=== PATIENT | female | born 1965 | race Caucasian/White ===

== ENCOUNTER 2016-09-02 07:41 | Day surgery (SDC) | payer BC ==
--- NOTE | 2016-09-01 10:35 | PCM.PREANE ---
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: no symptoms Respiratory: Reports: no symptoms Cardiovascular: Reports: no symptoms - PHYSICAL ASSESSMENT Height: 1.6 m Weight: 117.934 kg ASA Class: 2 Mental Status: alert & oriented x3 Airway Class: Mallampati = 1 Dentition: Reports: normal dentition ROM/Head Extension: full Respiratory Status: lungs clear to auscultation bilaterally Cardiovascular Status: regular rate & rhythm, normal S1, S2, no murmur - ALLERGIES Allergies/Adverse Reactions: Allergies Allergy/AdvReac Type Severity Reaction Status Date / Time No Known Allergies Allergy Verified 10/16/13 14:08 - BLOOD Blood Available: No - ANESTHESIA PLAN Preop Beta Renny: No Anesthesia Type Planned: MAC - ACKNOWLEDGEMENTS Pt an appropriate candidate for the planned anesthesia: Yes Alternatives and risks of anesthesia discussed w pt/guardian: Yes Pt/Guardian understands and agree with anesthesia plan: Yes PreAnesthesia Questionnaire HEENT History: Reports: Other (see below) Other HEENT History: wears glasses Gastrointestinal History: Reports: GERD Genitourinary History: Reports: Renal calculus 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: Musculoskeletal History: Reports: Gout Other Musculoskeletal History: states hx of "gout in her ankles" Psychiatric History: Reports: Anxiety, Depression Endocrine/Metabolic History: Reports: Diabetes, type II, Obesity/BMI 30+, Other (see below) Other Endocrine/Metabolic History: Insulin resistent, has been on metformin before, may be restarted after surgery Dermatologic History: Reports: Other (see below) Other Dermatologic History: dry skin - Past Surgical History Head Surgeries/Procedures: Reports: None HEENT Surgical History: Reports: Myringotomy w tube(s), Tonsillectomy Female Surgical History: Reports: section, Hysterectomy, Tubal ligation - SUBSTANCE USE Smoking Status *Q: Never Smoker Recreational Drug Use History: No - HOME MEDS Home Medications: Home Meds Acetaminophen [Tylenol Extra Strength] 1 - 2 tab PO ASDIRECTED PRN 08/30/16 [ History] Pantoprazole Sodium 40 mg PO BID 08/30/16 [History] - CURRENT (IN HOUSE) MEDS Current Meds: Current Medications Lactated Ringer's (Ringers, Lactated) 1,000 mls @ 125 mls/hr IV ASDIRECTED CONCEPCION Sodium Chloride (Saline Flush) 10 ml FLUSH ASDIRECTED PRN PRN Reason: Keep Vein Open Sodium Chloride (Saline Flush) 2.5 ml FLUSH ASDIRECTED PRN PRN Reason: Keep Vein Open
[~2016-09-02 07:41] MED LIST: Lactated Ringers 1,000 ML IV SCH; Midazolam 1 MG/ML 2 ML SDV ONE; Propofol 200 MG/20 ML SDV ONE; Sodium Chloride 0.9% 10 ML Syringe FLUSH PRN; Sodium Chloride 0.9% 2.5 ML Syringe FLUSH PRN; fentaNYL 100 MCG/2 ML SDV ONE
[2016-09-02] MEDS ORDERED: Propofol 200 MG/20 ML SDV ONE ×2 (09:54→10:21)
--- NOTE | 2016-09-02 10:35 | PCM.OPNOTE ---
- General Post-Op/Procedure Note Date of Surgery/Procedure: 09/02/16 Operative Procedure(s): Diagnostic EGD, Screening colonoscopy Findings: Inflammatory polyps throughout the gastric mucosa. Antral gastritis and duodenitis. Small descending colon polyp and diverticulosis throughout the colon. 8 minutes cecum to anus Pre Op Diagnosis: Gerd, screening colonoscopy Post-Op Diagnosis: Inflammatory gastric polyps, gastritis, duodenitis, descending colon polyp, diverticulosis. Possible hiatal hernia Primary Surgeon: Janene Pa Condition: Good
[2016-09-02 10:57] VITALS: BP 141/80
--- NOTE | 2016-09-02 12:19 | PCM.POSTAN ---
POST ANESTHESIA ASSESSMENT - MENTAL STATUS Mental Status: alert, oriented - RESPIRATORY Respiratory Status: respiratory rate WNL, airway patent - CARDIOVASCULAR CV Status: pulse rate WNL, blood pressure stable - GASTROINTESTINAL GI Status: no symptoms - POST OP HYDRATION Hydration Status: adequate & stable
--- NOTE | 2016-09-02 12:20 | PCM48HPAN ---
Post Anesthesia Note - EVALUATION WITHIN 48HRS OF ANESTHETIC Vital Signs in Normal Range: Yes Patient Participated in Evaluation: Yes Respiratory Function Stable: Yes Airway Patent: Yes Cardiovascular Function Stable: Yes Hydration Status Stable: Yes Pain Control Satisfactory: Yes Nausea and Vomiting Control Satisfactory: Yes Mental Status Recovered: Yes
--- NOTE | 2016-09-02 23:06 | OR ---
SURGEON: MICKY REBOLLEDO MD DATE OF PROCEDURE: 09/02/2016 PREOPERATIVE DIAGNOSIS: Epigastric pain and screening colonoscopy. POSTOPERATIVE DIAGNOSES: 1. Gastritis and duodenitis. 2. Gastric polyps. 3. Descending colon polyp. 4. Diverticulosis. INSTRUMENT USED: Olympus endoscope and colonoscope. ANESTHESIA: MAC. EXTENT OF EXAM: To the second portion of the duodenum during the EGD, to the cecum during the colonoscopy. PREPARATION: Good. LIMITATIONS: None. INDICATIONS: The patient is a 51-year-old female, who presents with epigastric pain and indigestion as well as for screening colonoscopy. I explained the EGD and colonoscopic procedure to the patient including the risks which include perforation, bleeding, infection or damage to surrounding structures. The patient verbalized understanding and wishes to proceed. PROCEDURE IN DETAIL: The patient was brought to the endoscopy suite and placed in the beach chair position. A time-out was completed verifying the patient's name, age, date of , allergies, and procedure to be performed. Monitored anesthesia care was induced and continuous oxygen was provided via nasal cannula throughout the procedure. After adequate sedation was achieved, a bite block was placed in the patient's mouth and the endoscope was placed in the patient's mouth and guided over the tongue down into the esophagus through the stomach into the second portion of duodenum. A photograph was taken of the second portion of duodenum. The scope was then slowly withdrawn back while examining the color, texture, anatomy, and integrity of the mucosa from the duodenum through to the esophagus. In the first portion of the duodenum, I noted mild duodenitis. The scope was then brought back into the stomach and a picture was taken of the pylorus. The antrum of the stomach appeared slightly atrophic with a mild inflammation. The gastric mucosa was covered in 1-2 mm round polyps. A biopsy was taken of the pylorus, antrum, body and fundus of the stomach and sent for H. pylori testing. One of the antral gastric polyps was removed and sent to pathology. The scope was retroflexed to allow visualization of the esophageal hiatus which appeared to show a small hiatal hernia. A picture was taken of the gastric mucosa. The scope was then brought into the esophagus and the GE junction carefully inspected. I was unable to ascertain whether or not the patient had a hiatal hernia based on my endoscopic diagnosis alone. If the patient does have a hiatal hernia, it is fairly small. Pictures were taken of the relative GE junction site and the scope then pulled backwards to allow visualization of the remainder of the esophagus. This all appeared normal. The scope was removed and this portion of the procedure terminated. The patient was then placed in the left lateral decubitus position and a digital rectal exam was performed. The examination was within normal limits. A well lubricated colonoscope was then inserted in the rectum and advanced under direct visualization to the level of the cecum. The patient has extremely tortuous sigmoid colon, making this difficult. The cecum was identified by both visual and anatomic landmarks. A photograph was taken of the cecal cap as well as with the scope retroflexed within the cecum. The scope was then straightened out and fully withdrawn while examining the color, texture, anatomy, and integrity of the mucosa from the cecum to the anal canal. The findings were consistent with diffuse diverticulosis. A small polyp was noted within the descending colon. This was sessile and approximately 1 mm in size. A cold biopsy forceps was used to remove this and sent to pathology. The scope was then brought into the rectum and retroflexed to allow visualization of the anal canal opening which appeared normal. A picture was taken and the scope was straightened out and removed from the patient. The procedure was terminated. The time from the cecum to the anal canal was 8 minutes. The patient was then transferred to the recovery room in stable condition. ENDOSCOPIC DIAGNOSIS: As noted above. RECOMMENDATIONS: Follow up in clinic in 2 weeks. May consider an upper GI swallow study to rule in or rule out a hiatal hernia. In the meantime, the patient is to take Protonix 40 mg in the morning and to take sucralfate 4 times a day. JASBIR KHANNA /[id number]
== END 2016-09-02 11:10 | disposition home or self-care (01) ==
LOC: MW.SDS 07:41
PROVIDERS: ATTEND Surgery
PROC: 0DBM8ZZ Excision of Descending Colon, Via Natural or Artificial Opening Endoscopic (ICD-10-PCS; principal; 2016-09-02)
PROC: 0DB78ZZ Excision of Stomach, Pylorus, Via Natural or Artificial Opening Endoscopic (ICD-10-PCS; 2016-09-02)
PROC: 0DB68ZZ Excision of Stomach, Via Natural or Artificial Opening Endoscopic (ICD-10-PCS; 2016-09-02)
DX: Z12.11 Encounter for screening for malignant neoplasm of colon (principal); D12.4 Benign neoplasm of descending colon; K31.7 Polyp of stomach and duodenum; K57.30 Diverticulosis of large intestine without perforation or abscess without bleeding; K29.50 Unspecified chronic gastritis without bleeding; K29.80 Duodenitis without bleeding; K21.9 Gastro-esophageal reflux disease without esophagitis; R10.13 Epigastric pain; Z80.0 Family history of malignant neoplasm of digestive organs; E11.9 Type 2 diabetes mellitus without complications; E78.5 Hyperlipidemia, unspecified; E66.01 Morbid (severe) obesity due to excess calories; M10.9 Gout, unspecified
CPT/HCPCS: 43239; 45380; 82962; 88305; 88312; J2250; J3010; J7120; 00740; J2704

== ENCOUNTER → 2016-09-21 | Outpatient (CLI) | payer BC ==
--- NOTE | 2016-09-21 10:57 | US ---
EXAMINATION: Right upper quadrant ultrasound HISTORY: Nausea COMPARISON: Radiographs dated 03/27/2007 TECHNIQUE: Grayscale and color Doppler images obtained of the right upper quadrant. FINDINGS: The visualized pancreas appears normal. The liver is mildly increased in generalized echot exture. No focal hepatic mass. The gallbladder wall thickness is normal. No pericholecystic fluid or shadowing gallstones. The common bile duct measures 4 mm. The right kidney measures 11.4 cm pole-to -pole without evidence of hydronephrosis. Sonographic Kirby sign is negative. IMPRESSION: 1. Mild fatty infiltration of the liver, otherwise unremarkable right upper quadrant.
== END ==
LOC: MW.US 09:14
PROVIDERS: ATTEND Surgery
DX: R11.0 Nausea (principal)
CPT/HCPCS: 76705; 76705-26

== ENCOUNTER → 2016-10-20 | Outpatient (CLI) | payer BC ==
--- NOTE | 2016-10-21 14:23 | CR ---
EXAM DATE: 10/20/16 PATIENT'S AGE: 51 Patient: KEVIN BILLY Facility: [place], [place] Site . Site : 1965 Study: XRay Shoulder Right [id number]/26/2017 9:04:29 AM Ordering Physician: Da Rae Final Report: HISTORY: Three month right shoulder pain. Findings: Three views right shoulder demonstrate mild degenerative changes of the AC joint. The glenohumeral joint appears maintained. No soft tissue calcification, fracture or dislocation is identified. There are old fractures of the posterior right 5th and 6th ribs. Impression: Mild degenerative changes of the AC joint. Dictated by Candace Palacios MD @ Oct 21 2016 12:05AM (Electronic Signature) Report Signed by Proxy. STEVE
== END ==
LOC: MW.CHFP 08:41
PROVIDERS: ATTEND Physician Assistant
DX: M25.511 Pain in right shoulder (principal)
CPT/HCPCS: 73030-26-RT; 73030-RT

== ENCOUNTER 2016-11-13 11:28 | Emergency (ER) | payer OTHER, BC ==
--- NOTE | 2016-11-13 13:21 | EDM.PDOC ---
ED HPI GENERAL MEDICAL PROBLEM - General Chief Complaint: Lower Extremity Injury/Pain Stated Complaint: RIGHT ANKLE AND RIGHT KNEE PAIN Time Seen by Provider: 11/13/16 12:00 Source of Information: Reports: Patient History Limitations: Reports: No Limitations - History of Present Illness INITIAL COMMENTS - FREE TEXT/NARRATIVE: History of present illness: [51 year-old female coming in with complaints of rolling her right ankle and falling. Patient indicates that there is an even an occult or to lose her balance Ms. stepping and rolling her right ankle and now she has swelling and pain.] Review of systems: As per history of present illness and below otherwise all systems reviewed and negative. Past medical history: As per history of present illness and as reviewed below otherwise noncontributory. Surgical history: As per history of present illness and as reviewed below otherwise noncontributory. Social history: No reported history of drug or alcohol abuse. Family history: As per history of present illness and as reviewed below otherwise noncontributory. Physical exam: HEENT: Atraumatic, normocephalic, pupils reactive, negative for conjunctival pallor or scleral icterus, mucous membranes moist, throat clear, neck supple, nontender, trachea midline. Lungs: Clear to auscultation, breath sounds equal bilaterally, chest nontender. Heart: S1S2, regular, negative for clicks, rubs, or JVD. Abdomen: Soft, nondistended, nontender. Negative for masses or hepatosplenomegaly. Negative for costovertebral tenderness. Pelvis: Stable nontender. Genitourinary: Deferred. Rectal: Deferred. Extremities: Right ankle with mild amount of bilateral edema at the malleolus external noted to be larger with acute tenderness versus the internal malleolus. negative for cords or calf pain. Neurovascular unremarkable. Neuro: Awake, alert, oriented. Cranial nerves II through XII unremarkable. Cerebellum unremarkable. Motor and sensory unremarkable throughout. Exam nonfocal. Diagnostics: [X-ray right ankle] Therapeutics: [] Impression: [Ankle injury] Plan: [Kenneth wrap, crutches, followup with ortho] Definitive disposition and diagnosis as appropriate pending reevaluation and review of above. right ankle Pain Score (Numeric/FACES): 8 - Related Data Allergies Allergy/AdvReac Type Severity Reaction Status Date / Time No Known Allergies Allergy Verified 11/13/16 11:47 Home Meds: Home Meds Acetaminophen [Tylenol Extra Strength] 1 - 2 tab PO ASDIRECTED PRN 08/30/16 [ History] Pantoprazole Sodium [Protonix] 40 mg PO ACBREAKFAST #60 tablet. 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: Musculoskeletal History: Reports: Gout Other Musculoskeletal History: states hx of "gout in her ankles" Neurological History: Reports: None Psychiatric History: Reports: Anxiety, Depression Endocrine/Metabolic History: Reports: Diabetes, Type II, Obesity/BMI 30+, Other (See Below) Other Endocrine/Metabolic History: Insulin resistent, has been on metformin before, may be restarted after surgery Hematologic History: Reports: None Immunologic History: Reports: None Oncologic (Cancer) History: Reports: None Dermatologic History: Reports: None Other Dermatologic History: dry skin - Infectious Disease History Infectious Disease History: Reports: Chicken Pox - Past Surgical History Head Surgeries/Procedures: Reports: None HEENT Surgical History: Reports: Myringotomy w Tube(s), Tonsillectomy Female Surgical History: Reports: Section, Hysterectomy, Tubal Ligation Social & Family History - Family History Family Medical History: Noncontributory - Tobacco Use Smoking Status *Q: Never Smoker - Caffeine Use Caffeine Use: Reports: Soda - Recreational Drug Use Recreational Drug Use: No Review of Systems - Review of Systems Review Of Systems: See Below (See history of present illness) Trauma Exam - Physical Exam Exam: See Below (See history of present illness) Course - Vital Signs Last Recorded V/S: Last Vital Signs Temp 36.4 C 11/13/16 11:48 Pulse 77 11/13/16 11:48 Resp 16 11/13/16 11:48 BP 143/64 H 11/13/16 11:48 Pulse Ox 97 11/13/16 11:48 Departure - Departure Time of Disposition: 13:23 Disposition: Home, Self-Care 01 Condition: good Clinical Impression: Right ankle injury - Discharge Information Instructions: Crutch Use, [id number] Forms: ED Department Discharge Additional Instructions: The following information is given to patients seen in the emergency department who are being discharged to home. This information is to outline your options for follow-up care. We provide all patients seen in our emergency department with a follow-up referral. The need for follow-up, as well as the timing and circumstances, are variable depending upon the specifics of your emergency department visit. If you don't have a primary care physician on staff, we will provide you with a referral. We always advise you to contact your personal physician following an emergency department visit to inform them of the circumstance of the visit and for follow-up with them and/or the need for any referrals to a consulting specialist. The emergency department will also refer you to a specialist when appropriate. This referral assures that you have the opportunity for follow-up care with a specialist. All of these measure are taken in an effort to provide you with optimal care, which includes your follow-up. Under all circumstances we always encourage you to contact your private physician who remains a resource for coordinating your care. When calling for follow-up care, please make the office aware that this follow-up is from your recent emergency room visit. If for any reason you are refused follow-up, please contact the Emergency Department at and asked to speak to the emergency department charge nurse. Use crutches as discussed Keep off leg/ankle is much as possible Followup with or so referral provided Return to ED as needed as discussed [facility] [address] [place] [address], [address] [place] [address]
[2016-11-13 13:57] VITALS: BP 140/67
--- NOTE | 2016-11-15 14:33 | CR ---
EXAM DATE: 11/13/16 PATIENT'S AGE: 51 Patient: KEVIN BILLY Facility: [place], [place] Site . Site : 1965 Study: XRay Extremity Right [id number]/20/2017 12:16:17 PM Ordering Physician: Doctor Bhakta Final Report: INDICATION: fall/injury HISTORY: Fall. Injury. COMPARISON: None. TECHNIQUE: Right ankle, 3 views. FINDINGS: There is mild soft tissue swelling present over the lateral malleolus. No acute fracture is identified at this location. There is cortical irregularity present about the right medial malleolus. This should be correlated for any history of trauma to this area, but does not appear acute. Tibial plafond and talar dome are intact. Subtalar and talonavicular joints are within normal limits. IMPRESSION: 1. Soft tissue swelling overlying the lateral malleolus. No fracture at this location is seen. 2. Cortical irregularity with ossific densities about the right medial malleolus. No associated soft tissue swelling. An acute fracture is not seen, but should be correlated with physical exam findings and mechanism of injury. Dictated by Andre Slater MD @ 11/13/2016 1:12:53 PM Dictated by: Andre Slater MD @ 11/13/2016 13:13:06 (Electronic Signature) Report Signed by Proxy. STEVE
== END 2016-11-13 13:45 | disposition home or self-care (01) ==
LOC: MW.ED 11:28
DX: S99.911A Unspecified injury of right ankle, initial encounter (principal); K21.9 Gastro-esophageal reflux disease without esophagitis; M10.9 Gout, unspecified; F41.9 Anxiety disorder, unspecified; E11.9 Type 2 diabetes mellitus without complications; F32.9 Major depressive disorder, single episode, unspecified; E66.9 Obesity, unspecified; Z68.41 Body mass index [BMI] 40.0-44.9, adult; Z79.84 Long term (current) use of oral hypoglycemic drugs; Z90.49 Acquired absence of other specified parts of digestive tract; Z90.710 Acquired absence of both cervix and uterus; Z98.51 Tubal ligation status; Z96.22 Myringotomy tube(s) status
CPT/HCPCS: 73610-26-RT; 73610-RT; 99282; 99283

== ENCOUNTER 2017-06-01 07:17 | Day surgery (SDC) | payer BC ==
[~2017-06-01 07:17] MED LIST changes: -Midazolam 1 MG/ML 2 ML SDV ONE; -Propofol 200 MG/20 ML SDV ONE; -Sodium Chloride 0.9% 10 ML Syringe FLUSH PRN; -Sodium Chloride 0.9% 2.5 ML Syringe FLUSH PRN; -fentaNYL 100 MCG/2 ML SDV ONE
[2017-06-01] MEDS ORDERED: Lidocaine 1% 50 ML MDV ONE (07:28)
[2017-06-01] MEDS ORDERED: Bupivacaine 0.5% 30 ML SDV ONE (07:33)
[2017-06-01] MEDS ORDERED: Bupivacaine 25%/EPINEPHrine/PF 30 ML ONE (07:33)
[2017-06-01] MEDS ORDERED: Midazolam 1 MG/ML 2 ML SDV ONE (07:37)
[2017-06-01] MEDS ORDERED: Ketorolac 30 MG/ML SDV ONE (07:37)
[2017-06-01] MEDS ORDERED: fentaNYL 250 MCG/5 ML SDV ONE (07:37)
[2017-06-01] MEDS ORDERED: Ondansetron 4 MG/2 ML SDV ONE ×2 (07:37→12:13)
[2017-06-01] MEDS ORDERED: Propofol 200 MG/20 ML SDV ONE ×3 (07:37→10:54)
[2017-06-01] MEDS ORDERED: Lidocaine 2% 5 ML SDV ONE (07:37)
[2017-06-01] MEDS ORDERED: Succinylcholine/Normal Saline 200 MG/10 ML Syringe ONE (07:38)
[2017-06-01] MEDS ORDERED: Ketorolac 10 MG Tab PO PRN (08:00)
[2017-06-01] MEDS ORDERED: ceFAZolin 2 GM in Premix Bag 1 BAG IV SCH (08:00)
[2017-06-01] MEDS ORDERED: Acetaminophen/HYDROcodone 325-10 MG Tab PO PRN (08:00)
--- NOTE | 2017-06-01 08:45 | PCM.PREANE ---
Preanesthetic Assessment - Procedure Proposed Procedure: Right shoulder arthroscopic surgery - Anesthesia/Transfusion/Family Hx Anesthesia History: Prior Anesthesia Without Reaction Other Type of Anesthesia Reaction Comment: "I get shakey", "told I turned blue during MRI under sedation" Family History of Anesthesia Reaction: No Transfusion History: No Prior Transfusion(s) Intubation History: Unknown - Review of Systems General: No Symptoms, Other (obesity) Pulmonary: No Symptoms Cardiovascular: No Symptoms Gastrointestinal: No Symptoms Neurological: Pre-Existing Deficit (pain in right shoulder ) Other: Reports: Diabetes (type II on metformin), Depression, Anxiety - Physical Assessment NPO Status Date: 05/31/17 NPO Status Time: 22:00 O2 Sat by Pulse Oximetry: 98 Respiratory Rate: 16 Vital Signs: Last Vital Signs Temp 99.0 F 06/01/17 07:30 Pulse 72 06/01/17 07:30 Resp 16 06/01/17 07:30 BP 140/100 H 06/01/17 07:30 Pulse Ox 98 06/01/17 07:30 Height: 5 ft 3 in Weight: 233 lb ASA Class: 3 Mental Status: Alert & Oriented x3 Airway Class: Mallampati = 2 Dentition: Reports: Normal Dentition Thyro-Mental Finger Breadths: 3 Mouth Opening Finger Breadths: 3 (narrow palate) Lungs: Clear to Auscultation, Normal Respiratory Effort Cardiovascular: Regular Rate, Regular Rhythm, No Murmurs - Lab Values: Laboratory Last Values POC Glucose 133 mg/dL (60-110) H 06/01/17 07:45 - Allergies Allergies/Adverse Reactions: Allergies Allergy/AdvReac Type Severity Reaction Status Date / Time No Known Allergies Allergy Verified 11/13/16 11:47 - Blood Blood Available: No Product(s) Available: None - Anesthesia Plan Pre-Op Medication Ordered: None - Acknowledgements Anesthesia Type Planned: General Anesthesia, Regional Block (probable placement at end case (detailed discussion w/ present)) Pt an Appropriate Candidate for the Planned Anesthesia: Yes Alternatives and Risks of Anesthesia Discussed w Pt/Guardian: Yes Pt/Guardian Understands and Agrees with Anesthesia Plan: Yes PreAnesthesia Questionnaire HEENT History: Reports: Other (See Below) Other HEENT History: wears glasses Cardiovascular History: Reports: High Cholesterol Respiratory History: Reports: Sleep Apnea Gastrointestinal History: Reports: GERD Genitourinary History: Reports: Renal Calculus 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: Musculoskeletal History: Reports: Arthritis, Gout Other Musculoskeletal History: states hx of "gout in her ankles" Neurological History: Reports: None Psychiatric History: Reports: Anxiety, Depression Endocrine/Metabolic History: Reports: Diabetes, Type II, Obesity/BMI 30+ Hematologic History: Reports: None Immunologic History: Reports: None Oncologic (Cancer) History: Reports: None Dermatologic History: Reports: None - Infectious Disease History Infectious Disease History: Reports: Chicken Pox - Past Surgical History Head Surgeries/Procedures: Reports: None HEENT Surgical History: Reports: Adenoidectomy, Myringotomy w Tube(s), Tonsillectomy, Other (See Below) Other HEENT Surgeries/Procedures: T&A and uvuloplasty for sleep apnea GI Surgical History: Reports: Colonoscopy, EGD Female Surgical History: Reports: Section, Hysterectomy, Tubal Ligation Musculoskeletal Surgical History: Reports: Carpal Tunnel, Other (See Below) Other Musculoskeletal Surgeries/Procedures:: CTR and trigger finger release - SUBSTANCE USE Smoking Status *Q: Never Smoker Recreational Drug Use History: No - HOME MEDS Home Medications: Home Meds Acetaminophen [Tylenol Extra Strength] 1 - 2 tab PO ASDIRECTED PRN 08/30/16 [ History] Pantoprazole Sodium [Protonix] 40 mg PO ACBREAKFAST #60 tablet.dr 09/02/16 [Rx] metFORMIN HCl [Metformin HCl] 1 tab PO BID 11/13/16 [History] Naproxen Sodium [Aleve] 2 tab PO ASDIRECTED PRN 05/30/17 [History] Sucralfate 10 ml PO QIDACANDBED PRN 05/30/17 [History] atorvaSTATin Calcium [Atorvastatin Calcium] 10 mg PO DAILY 05/30/17 [History] - CURRENT (IN HOUSE) MEDS Current Meds: Current Medications Hydrocodone Bitart/Acetaminophen (Hedrick 325-10 Mg) 1 - 2 tab PO Q4H PRN PRN Reason: Pain Cefazolin Sodium/Dextrose 2 gm (/ Premix) 50 mls @ 100 mls/hr IV ONCALL CONCEPCION Lactated Ringer's (Ringers, Lactated) 1,000 mls @ 100 mls/hr IV ASDIRECTED CONCEPCION Last Admin: 06/01/17 07:34 Dose: 100 mls/hr Ketorolac Tromethamine (Toradol) 10 mg PO Q6H PRN PRN Reason: Pain Stop: 06/06/17 08:01 Discontinued Medications Bupivacaine HCl (Marcaine 0.5%) Confirm Administered Dose 30 ml .ROUTE .STK-MED ONE Stop: 06/01/17 07:34 Fentanyl (Sublimaze) Confirm Administered Dose 250 mcg .ROUTE .STK-MED ONE Stop: 06/01/17 07:38 Bupivacaine HCl/Epinephrine Bitart (Sensorc Mpf 0.25%-Epi [id number]) Confirm Administered Dose 30 mls @ as directed .ROUTE .STK-MED ONE Stop: 06/01/17 07:34 Ketorolac Tromethamine (Toradol) Confirm Administered Dose 30 mg .ROUTE .STK- MED ONE Stop: 06/01/17 07:38 Lidocaine (Xylocaine-Mpf 2%) Confirm Administered Dose 10 ml .ROUTE .STK-MED ONE Stop: 06/01/17 07:38 Lidocaine HCl (Xylocaine 1%) Confirm Administered Dose 50 ml .ROUTE .STK-MED ONE Stop: 06/01/17 07:29 Midazolam HCl (Versed 1 Mg/Ml) Confirm Administered Dose 2 mg .ROUTE .STK-MED ONE Stop: 06/01/17 07:38 Ondansetron HCl (Zofran) Confirm Administered Dose 4 mg .ROUTE .STK-MED ONE Stop: 06/01/17 07:38 Propofol (Diprivan 20 Ml) Confirm Administered Dose 400 mg .ROUTE .STK-MED ONE Stop: 06/01/17 07:38 Succinylcholine Chloride (Succinylcholine In Ns Pf) Confirm Administered Dose 200 mg .ROUTE .STK-MED ONE Stop: 06/01/17 07:39
[2017-06-01] MEDS ORDERED: ePHEDrine 50 MG/ML SDV ONE (09:43)
[2017-06-01] MEDS ORDERED: HYDROmorphone 2 MG/ML Syringe IVPUSH ONE (09:49)
[2017-06-01] MEDS ORDERED: fentaNYL 100 MCG/2 ML SDV IVPUSH PRN (09:49)
[2017-06-01] MEDS ORDERED: fentaNYL 100 MCG/2 ML SDV ONE (09:58)
--- NOTE | 2017-06-01 11:19 | PCM.OPNOTE ---
- General Post-Op/Procedure Note Date of Surgery/Procedure: 06/01/17 Operative Procedure(s): R shoulder arthroscopy with SAD, extensive debridement including biceps tenotomy, and RTCR Post-Op Diagnosis: R shoulder impingement, biceps tendonopathy, degenerative anterior labral tear, RTC tear Anesthesia Technique: General ET Tube Primary Surgeon: Emily Brand Casing Man: Jaquelin Ortega in mLs: 10 Condition: Good Free Text/Narrative:: #[id number]
[2017-06-01] MEDS ORDERED: Promethazine 25 MG/ML SDV IM ONE (12:09)
[2017-06-01] MEDS ORDERED: Ondansetron 4 MG/2 ML SDV IVPUSH ONE (12:10)
[2017-06-01] MEDS ORDERED: Scopolamine 1.5 MG Transdermal Patch TOP ONE (12:11)
[2017-06-01] MEDS ORDERED: Promethazine 25 MG/ML SDV ONE (12:13)
[2017-06-01] MEDS ORDERED: Scopolamine 1.5 MG Transdermal Patch ONE (12:38)
--- NOTE | 2017-06-01 12:47 | PCM.POSTAN ---
POST ANESTHESIA ASSESSMENT - MENTAL STATUS Mental Status: Alert, Oriented - VITAL SIGNS Pulse Rate: 85 SaO2: 99 (supplemental nasal oxygen) Resp Rate: 15 Blood Pressure: 138/85 - RESPIRATORY Respiratory Status: Respiratory Rate WNL, Airway Patent, O2 Saturation Stable - CARDIOVASCULAR CV Status: Pulse Rate WNL, Blood Pressure Stable - GASTROINTESTINAL GI Status: No Symptoms, Nauseau Free Text/Narrative:: treated nausea with zofran, phenergan and scopolomine patch improved - PAIN Pain Score: 0 - POST OP HYDRATION Hydration Status: Adequate & Stable
--- NOTE | 2017-06-01 12:56 | OR ---
SURGEON: Emily Brand MD DATE OF PROCEDURE: 06/01/2017 PREOPERATIVE DIAGNOSES: 1. Right shoulder impingement syndrome. 2. Right shoulder biceps tendinopathy. 3. Right shoulder rotator cuff tear. POSTOPERATIVE DIAGNOSES: 1. Right shoulder impingement syndrome. 2. Right shoulder biceps tendinopathy. 3. Right shoulder rotator cuff tear. 4. Degenerative anterior labral tear. PROCEDURE: Right shoulder arthroscopy with: 1. Subacromial decompression with acromioplasty and release of coracoacromial ligament. 2. Extensive synovectomy including biceps tenotomy and debridement of degenerative anterior labral tear. 3. Arthroscopic rotator cuff repair. CITY MAINTENANCE MANAGER: Jaquelin Ortega PA-C. ANESTHESIA: General. ESTIMATED BLOOD LOSS: 10 mL. TOURNIQUET TIME: 0 minutes. COMPLICATIONS: None. DVT PROPHYLAXIS: PAS boots to bilateral lower extremities. IMPLANTS USED: Two Arthrex 4.5 mm corkscrew anchors and one Arthrex 4.75 mm SwiveLock anchor. BRIEF HISTORY: Ruth is a 51-year-old female, who has had complaint of progressive right shoulder pain. She did have an MRI, which did show a tear of the anterior portion of the supraspinatus. Due to her lack of response to conservative treatment, I did recommend surgical intervention. The risks and goals of procedure were discussed with the patient and were documented preoperatively. She agreed to proceed. DESCRIPTION OF PROCEDURE: The patient was properly identified and brought to the operating room. She was transferred from the OR cart and placed on the operating room table in a supine position. General anesthesia was administered. After adequate anesthesia was obtained, she was placed into a beach-chair type position. Care was taken to pad all bony prominences. Her head was secured. The right upper extremity was prepped in standard fashion using ChloraPrep solution. It was then sterilely draped. A time-out was performed to ensure correct site and procedure. Preoperative antibiotics were given. The surgical site had been marked preoperatively. A marking pen was used to identify the bony landmarks. Approximately 30 mL of normal saline was introduced into the glenohumeral joint. A posterior portal was established. Blunt trocar and cannula were introduced into the glenohumeral joint. Camera, inflow, and outflow were assembled. She had mild synovitis within the rotator interval. An anterior portal was then established. A probe was used to evaluate the subscapularis tendon. This appeared intact. No loose bodies were identified in the subscapular recess. The anterior labrum showed some degenerative tearing. This was debrided with electrocautery. The biceps tendon insertion was noted. She appeared to have some peel back of the insertion onto the labrum. The biceps was pulled into the joint and small longitudinal fissures were noted distally. I elected to proceed with biceps tenotomy. This was performed with electrocautery. The biceps retracted easily into the bicipital tendon sheath. The attachment site was contoured. The posterior labrum appeared intact. Both the glenoid and humeral head showed no signs of degenerative changes. The axillary pouch showed no loose bodies or evidence of synovitis. The arm was then brought into an abducted and externally rotated position. The bare area was noted posteriorly. As I progressed forward, there was some partial thickness tearing of the infraspinatus tendon. At the most anterior portion there was nearly full-thickness tearing of the supraspinatus. Gentle debridement of the infraspinatus was performed. There was less than 2 mm of the partial tearing of the infraspinatus. The arm was then brought back into a neutral position. Instruments were then removed from the glenohumeral joint. The blunt trocar and cannula were then introduced into the subacromial space. A lateral portal was established. Using a combination of the shaver and electrocautery, an extensive bursectomy was performed. The coracoacromial ligament was released off the anterior acromion. She did have a type 2 acromion noted which appeared to be causing some impingement. A 5.0 mm edna was then used to perform an acromioplasty. This provided good decompression of the subacromial space. The rotator cuff was then inspected. It appeared to be intact although there was a small portion along the anterior portion of the supraspinatus which was quite thin. This thinning had been noted within the intra-articular portion, I elected to proceed with repair. Electrocautery was used to complete the tear. The edna was used to roughen the bone beneath this. I did use a cuff grasper, and was able to easily pull the rotator cuff tear back to its footprint. A 4.5 mm corkscrew was then placed just lateral to the articular surface. The sutures were passed through the cuff tissue. They were then tied. We had good reapproximation of the cuff tissue to the footprint. I elected to proceed with a lateral row for additional compression. A 4.75 mm SwiveLock anchor was placed. I did incorporate the sutures from the repair into this and this provided good compression of the rotator cuff. I then used a probe to examine the rotator cuff. There was a small area of tissue anteriorly which appeared to have dog eared. I felt that an additional anchor would provide good fixation of this portion as well. A 4.5 mm corkscrew anchor was again placed anteriorly. Two sutures were passed through the cuff tissue. This was then tied. The repair was again probed and was found to be nearly watertight. Sutures were then cut. There appeared to be good compression of the cuff to the footprint through the portion of the tear. Instruments were then removed from the shoulder. The portal sites were closed with 3-0 nylon. Xeroform gauze was placed over the wound and a bulky dressing was applied. She was placed into a supine position. An interscalene block was administered by the Anesthesia staff at the completion. She was in stable condition. She was turned over to the Anesthesia personnel. WILIAM / JEY /[id number]
[2017-06-01 14:50] VITALS: BP 142/82
== END 2017-06-01 14:15 | disposition home or self-care (01) ==
LOC: MW.SDS 07:17
PROVIDERS: ATTEND Orthopaedic Surgery
DX: M75.101 Unspecified rotator cuff tear or rupture of right shoulder, not specified as traumatic (principal); M75.41 Impingement syndrome of right shoulder; M67.929 Unspecified disorder of synovium and tendon, unspecified upper arm; S43.491A Other sprain of right shoulder joint, initial encounter; X58.XXXA Exposure to other specified factors, initial encounter; E66.01 Morbid (severe) obesity due to excess calories; K21.9 Gastro-esophageal reflux disease without esophagitis; J30.2 Other seasonal allergic rhinitis; E11.65 Type 2 diabetes mellitus with hyperglycemia; Z79.84 Long term (current) use of oral hypoglycemic drugs; Z79.899 Other long term (current) drug therapy; Z98.51 Tubal ligation status; Z90.710 Acquired absence of both cervix and uterus
CPT/HCPCS: 29821; 29826; 29827; 82962; A9270; J1885; J2250; J2405; J2550; J3010; J7120; 01630; 88304; C1713; J2704

== ENCOUNTER 2019-01-23 06:26 | Day surgery (SDC) | payer BC ==
[~2019-01-23 06:26] MED LIST changes: +Sodium Chloride 0.9% 10 ML SDV IV PRN; +Sodium Chloride 0.9% 10 ML Syringe FLUSH PRN; +Sodium Chloride 0.9% 2.5 ML Syringe FLUSH PRN; +ceFAZolin 2 GM in Premix Bag 1 BAG IV ONE
[2019-01-23] MEDS ORDERED: Lidocaine 2% 100 MG/5 ML Syringe ONE (06:56)
[2019-01-23] MEDS ORDERED: Rocuronium 100 MG/10 ML Syringe ONE (06:56)
[2019-01-23] MEDS ORDERED: Propofol 200 MG/20 ML SDV ONE (06:57)
[2019-01-23] MEDS ORDERED: fentaNYL 250 MCG/5 ML SDV ONE (06:57)
[2019-01-23] MEDS ORDERED: Lidocaine 2% 5 ML SDV ONE (06:58)
--- NOTE | 2019-01-23 07:01 | PCM.PREANE ---
Preanesthetic Assessment - Anesthesia/Transfusion/Family Hx Anesthesia History: Prior Anesthesia Without Reaction Other Type of Anesthesia Reaction Comment: "I shiver and get acid reflux after surgery" Family History of Anesthesia Reaction: No Transfusion History: No Prior Transfusion(s) Intubation History: Unknown - Review of Systems General: No Symptoms Pulmonary: No Symptoms Cardiovascular: No Symptoms Gastrointestinal: Abdominal Pain Neurological: No Symptoms Other: Reports: None - Physical Assessment Height: 5 ft 3 in Weight: 110.223 kg ASA Class: 2 Mental Status: Alert & Oriented x3 Airway Class: Mallampati = 3 Dentition: Reports: Normal Dentition, [place](s) (x1 upper right (back0) Thyro-Mental Finger Breadths: 3 Mouth Opening Finger Breadths: 3 ROM/Head Extension: Full Lungs: Clear to Auscultation, Normal Respiratory Effort Cardiovascular: Regular Rate, Regular Rhythm - Allergies Allergies/Adverse Reactions: Allergies Allergy/AdvReac Type Severity Reaction Status Date / Time No Known Allergies Allergy Verified 01/18/19 12:35 - Blood Blood Available: No - Anesthesia Plan Pre-Op Medication Ordered: None - Acknowledgements Anesthesia Type Planned: General Anesthesia Pt an Appropriate Candidate for the Planned Anesthesia: Yes Alternatives and Risks of Anesthesia Discussed w Pt/Guardian: Yes Pt/Guardian Understands and Agrees with Anesthesia Plan: Yes PreAnesthesia Questionnaire HEENT History: Reports: Other (See Below) Other HEENT History: wears glasses Cardiovascular History: Reports: High Cholesterol Respiratory History: Reports: Sleep Apnea Other Respiratory History: does not use CPAP, has had uvuloplasty Gastrointestinal History: Reports: Cholelithiasis, Colon Polyp, GERD Genitourinary History: Reports: Renal Calculus SQL APPLICATION DEVELOPER History: Reports: Musculoskeletal History: Reports: Arthritis, Fracture Other Musculoskeletal History: hx fx wrist as a child Neurological History: Reports: Concussion, Migraines Psychiatric History: Reports: Anxiety, Depression Endocrine/Metabolic History: Reports: Diabetes, Type II, Obesity/BMI 30+ (BMI 43 ) Other Endocrine/Metabolic History: Insulin resistent, has been off metformin for 1 year Hematologic History: Reports: None Immunologic History: Reports: None Oncologic (Cancer) History: Reports: None Dermatologic History: Reports: None - Infectious Disease History Infectious Disease History: Reports: Chicken Pox - Past Surgical History Head Surgeries/Procedures: Reports: None HEENT Surgical History: Reports: Myringotomy w Tube(s), Tonsillectomy, Other ( See Below) Other HEENT Surgeries/Procedures: PE tubes several times, Uvuloplasty due to sleep apnea Cardiovascular Surgical History: Reports: None Respiratory Surgical History: Reports: None GI Surgical History: Reports: Colonoscopy, EGD Female Surgical History: Reports: Section, Hysterectomy, Tubal Ligation Endocrine Surgical History: Reports: Parathyroidectomy Neurological Surgical History: Reports: None Musculoskeletal Surgical History: Reports: Carpal Tunnel, Shoulder Surgery (rt. rotator cuff repair) Other Musculoskeletal Surgeries/Procedures:: CTR and trigger finger release, rt shoulder surgery Dermatological Surgical History: Reports: None - SUBSTANCE USE Smoking Status *Q: Never Smoker Recreational Drug Use History: No - HOME MEDS Home Medications: Home Meds Pantoprazole Sodium [Protonix] 40 mg PO ACBREAKFAST #60 tablet. 09/02/16 [Rx] atorvaSTATin Calcium [Atorvastatin Calcium] 40 mg PO DAILY 05/30/17 [History] Acetaminophen [Tylenol Extra Strength] 1 - 2 tab PO ASDIRECTED PRN 01/18/19 [ History] LORazepam 1 tab PO BID PRN 01/18/19 [History] Lisinopril 2.5 mg PO DAILY 01/18/19 [History] Loratadine/Pseudoephedrine [Claritin-D 24 Hour Tablet] 1 tab PO DAILY PRN [History] Naproxen Sodium [Aleve] 1 tab PO QID PRN 01/18/19 [History] Ranitidine HCl 150 mg PO BEDTIME 01/18/19 [History] Scopolamine 1 patch TRDERM ONETIME 01/18/19 [History] - CURRENT (IN HOUSE) MEDS Current Meds: Current Medications Lactated Ringer's (Ringers, Lactated) 1,000 mls @ 125 mls/hr IV ASDIRECTED CONCEPCION Sodium Chloride (Saline Flush) 10 ml FLUSH ASDIRECTED PRN PRN Reason: Keep Vein Open Sodium Chloride (Saline Flush) 2.5 ml FLUSH ASDIRECTED PRN PRN Reason: Keep Vein Open Sodium Chloride (Normal Saline) 10 ml IV ASDIRECTED PRN PRN Reason: IV Use Discontinued Medications Cefazolin Sodium/Dextrose 2 gm (/ Premix) 50 mls @ 100 mls/hr IV ONETIME ONE Stop: 01/19/19 15:29
[2019-01-23] MEDS ORDERED: Ketamine 500 mg/10 ML MDV ONE (07:02)
[2019-01-23] MEDS ORDERED: Ondansetron 4 MG/2 ML SDV ONE (07:03)
[2019-01-23] MEDS ORDERED: Bupivacaine 0.5% 30 ML SDV ONE (07:21)
[2019-01-23] MEDS ORDERED: Phenylephrine/Normal Saline 100 MCG/ML 10 ML Syringe ONE (08:18)
[2019-01-23] MEDS ORDERED: Morphine 10 MG/ML Syringe ONE (08:53)
[2019-01-23] MEDS ORDERED: Glycopyrrolate 0.2 MG/ML SDV ONE ×2 (09:28→09:49)
[2019-01-23] MEDS ORDERED: Neostigmine Methylsulfate 1 MG/ML 5 ML Syringe ONE (09:28)
--- NOTE | 2019-01-23 09:43 | PCM.OPNOTE ---
- General Post-Op/Procedure Note Date of Surgery/Procedure: 01/23/19 Operative Procedure(s): laproscopic cholecystectomy Findings: gallbladder with stones Pre Op Diagnosis: choleliathesis Post-Op Diagnosis: choleliathesis Anesthesia Technique: General ET Tube Primary Surgeon: Janene Pa Pathology: gallbladder Fluid Replacement, Intraop: 1,200 Output, Urine Amount: 75 EBL in mLs: 5 Condition: Good
--- NOTE | 2019-01-23 11:03 | PCM.POSTAN ---
POST ANESTHESIA ASSESSMENT - MENTAL STATUS Mental Status: Alert, Oriented - RESPIRATORY Respiratory Status: Respiratory Rate WNL, Airway Patent, O2 Saturation Stable - CARDIOVASCULAR CV Status: Pulse Rate WNL, Blood Pressure Stable - GASTROINTESTINAL GI Status: No Symptoms - PAIN Pain Score: 3 - POST OP HYDRATION Hydration Status: Adequate & Stable - OBSERVATIONS Free Text/Narrative:: no anesthesia problems
--- NOTE | 2019-01-23 12:15 | OR ---
SURGEON: JANENE REBOLLEDO MD DATE OF PROCEDURE: 01/23/2019 PREOPERATIVE DIAGNOSIS: Symptomatic cholelithiasis. POSTOPERATIVE DIAGNOSES: 1. Symptomatic cholelithiasis. 2. Fatty infiltration of the liver. PROCEDURE PERFORMED: Laparoscopic cholecystectomy. PRIMARY SURGEON: Janene Rebolledo MD. LACE SEWER: marketing director assisted living: Brook Dupree DO. ANESTHESIA: General endotracheal anesthesia. FLUIDS: 1200 mL crystalloid. ESTIMATED BLOOD LOSS: 5 mL. URINE OUTPUT: 75 mL. FINDINGS: Grossly enlarged fatty nodular appearing liver. Normal appearing gallbladder. COMPLICATIONS: None. INDICATIONS: The patient is a 53-year-old female who presents with symptomatic cholelithiasis. The patient and I discussed the need for a cholecystectomy. I explained the procedure, expected perioperative course, and risks including bleeding, infection, or damage to surrounding structures. The patient verbalized understanding and wishes to proceed. PROCEDURE IN DETAIL: The patient was brought into the OR and placed on the OR table in supine position. A time-out was completed verifying the patient's name, age, date of , allergies, and procedure to be performed. General endotracheal anesthesia was induced. The patient's left arm was tucked at her side and a Renae catheter placed. Given her body habitus, great care was taken to appropriately pad and protect all bony surfaces. The abdomen was prepped and draped in usual standard fashion. I anesthetized an area above the supraumbilical midline with 0.5% Marcaine plain. An 11 blade was used to make an incision along the supraumbilical midline. This was carried down to the subcutaneous fat using cautery. I then bluntly dissected down to the level of fascia. The fascia was elevated with April's and incised sharply using a curved López scissors. I then used a hemostat to bluntly dissect through the peritoneal layer into the abdomen. Stay sutures were placed on either side of the fascia using 0 Vicryl suture. A 12 mm David trocar was inserted in the abdomen and the abdomen insufflated. I inserted a 5 mm 30 degree scope. Upon entry into the abdomen, I noted the omentum to be in the superior aspect of my visual field. I removed the David trocar and swept around the underside of the abdominal wall with my finger. The patient appeared to have a very small umbilical hernia containing omentum. This was swept down and I placed my trocar back in the abdomen. I inspected the area around my initial trocar placement. A small rent had been made in the omentum, but otherwise there was no damage to surrounding structures. The patient was placed into reverse Trendelenburg position and airplaned slightly to the left. 5 mm trocars were placed under direct visualization in the following locations; one in the epigastric area, one in the right flank, and one 3 fingerbreadths below the right subcostal margin in the midclavicular line. The patient's liver was quite large. It had fatty infiltration and was nodular. Care was taken to avoid manipulation or pressure on the liver. Using a blunt trocar, I lifted the edge of the liver and was able to identify the gallbladder. The dome of the gallbladder was grasped and gently elevated. This exposed the infundibulum. Using a combination of blunt dissection and hook cautery, I was able to take down the attachments around the cystic triangle. Once I cleared away one-third of the proximal cystic plate and could clearly see my cystic duct and artery, I doubly clipped and ligated my cystic duct and artery. The gallbladder was removed from the gallbladder fossa using electrocautery. A small rent was made in the gallbladder. While doing this, bile was spilled in the abdomen, but no stones were. The gallbladder was placed in an EndoCatch bag and removed through the supraumbilical port site. I replaced my trocar and inspected my operative field and appeared to be hemostatic. I irrigated the abdomen with 1 L of normal saline until it ran clear. I reinspected my operative field and the clips appeared to be in good position, and there was no evidence of bile leakage. I then placed my 5 mm camera in my epigastric port and inspected the umbilicus. The patient did appear to have a very small umbilical hernia which contained omentum. A photograph of this was taken. The 5 mm trocars were then removed under direct visualization and the abdomen allowed to desufflate. The David trocar was removed as well. The fascia at the supraumbilical port site was closed with interrupted 0 Vicryl sutures. The subcutaneous fat layer was closed with interrupted 3-0 Vicryl sutures. The skin was closed with a running 4-0 Monocryl stitch. The 5 mm trocar sites were closed with interrupted 4-0 Monocryl sutures. Steri-Strips and sterile dressings were applied. All counts were complete and correct at the end of the case. The patient tolerated the procedure well and was taken to the PACU in stable condition. JASBIR KHANNA /[id number]
[2019-01-23] MEDS ORDERED: Albuterol/Ipratropium 3.0-0.5 MG/3 ML Neb Soln NEB ONE (14:16)
[2019-01-23] MEDS ORDERED: diphenhydrAMINE 50 MG/ML SDV IVPUSH PRN (14:47)
[2019-01-23] MEDS ORDERED: Acetaminophen/oxyCODONE 325-5 MG Tab PO PRN (14:47)
[2019-01-23] MEDS ORDERED: HYDROmorphone 2 MG/ML SDV IVPUSH PRN (14:47)
--- NOTE | 2019-01-23 14:50 | PCM.SN ---
- Free Text/Narrative Note: Patient unable to maintain oxygen saturations on room air four hours after surgery. Will admit for close observation and RT cares overnight.
[2019-01-23] MEDS ORDERED: Pantoprazole 40 MG Tab.CR PO ONE (17:15)
[2019-01-23] MEDS ORDERED: Lactated Ringers 1,000 ML IV SCH (23:15)
[2019-01-24 07:29] VITALS: BP 141/60; PULSE 45
[2019-01-24] MEDS ORDERED: Pantoprazole 40 MG Tab.CR PO SCH (07:30)
--- NOTE | 2019-01-24 08:03 | PCM48HPAN ---
Post Anesthesia Note - EVALUATION WITHIN 48HRS OF ANESTHETIC Vital Signs in Normal Range: Yes Patient Participated in Evaluation: Yes Respiratory Function Stable: Yes Airway Patent: Yes Cardiovascular Function Stable: Yes Hydration Status Stable: Yes Pain Control Satisfactory: Yes Nausea and Vomiting Control Satisfactory: Yes Mental Status Recovered: Yes Resp Rate: 15
--- NOTE | 2019-01-24 09:06 | PCM.SURGPN ---
- General Info Date of Service: 01/24/19 Date of Surgery/Procedure: 01/23/19 POD#: 1 Functional Status: Reports: Pain Controlled, Tolerating Diet, Ambulating, Urinating - Review of Systems General: Reports: No Symptoms HEENT: Reports: No Symptoms Pulmonary: Reports: No Symptoms Cardiovascular: Reports: No Symptoms Gastrointestinal: Reports: No Symptoms Genitourinary: Reports: No Symptoms - Patient Data Vitals - Most Recent: Last Vital Signs Temp 37.4 C 01/24/19 07:28 Pulse 45 L 01/24/19 07:28 Resp 15 01/24/19 08:03 BP 141/60 H 01/24/19 07:28 Pulse Ox 97 01/24/19 06:00 Weight - Most Recent: 110.223 kg I&O - Last 24 Hours: Intake & Output 01/23/19 01/24/19 01/24/19 22:59 06:59 14:59 Intake Total 2200 Output Total 300 Balance 1900 Lab Results Last 24 Hrs: Laboratory Results - last 24 hr 01/23/19 Range/Units 06:56 POC Glucose 213 H (60-110) mg/dL Med Orders - Current: Current Medications Diphenhydramine HCl (Benadryl) 25 mg IVPUSH Q4H PRN PRN Reason: Itching Hydromorphone HCl (Dilaudid) 0.5 mg IVPUSH Q1H PRN PRN Reason: Pain (severe 7-10) Lactated Ringer's (Ringers, Lactated) 1,000 mls @ 125 mls/hr IV ASDIRECTED CONCEPCION Last Admin: 01/24/19 00:03 Dose: 125 mls/hr Oxycodone/Acetaminophen (Percocet 325-5 Mg) 2 tab PO Q4H PRN PRN Reason: Pain (moderate 4-6) Last Admin: 01/24/19 00:17 Dose: 1 tab Pantoprazole Sodium (Protonix) 40 mg PO ACBREAKFAST CONCEPCION Last Admin: 01/24/19 06:37 Dose: 40 mg Sodium Chloride (Saline Flush) 10 ml FLUSH ASDIRECTED PRN PRN Reason: Keep Vein Open Sodium Chloride (Saline Flush) 2.5 ml FLUSH ASDIRECTED PRN PRN Reason: Keep Vein Open Sodium Chloride (Normal Saline) 10 ml IV ASDIRECTED PRN PRN Reason: IV Use Discontinued Medications Albuterol/Ipratropium (Duoneb 3.0-0.5 Mg/3 Ml) 3 ml NEB ONETIME ONE Stop: 01/23/19 14:17 Last Admin: 01/23/19 14:42 Dose: 3 ml Bupivacaine HCl (Marcaine 0.5%) Confirm Administered Dose 30 ml .ROUTE .STK-MED ONE Stop: 01/23/19 07:22 Fentanyl (Sublimaze) Confirm Administered Dose 250 mcg .ROUTE .STK-MED ONE Stop: 01/23/19 06:58 Glycopyrrolate (Robinul) Confirm Administered Dose 0.6 mg .ROUTE .STK-MED ONE Stop: 01/23/19 09:29 Glycopyrrolate (Robinul) Confirm Administered Dose 0.2 mg .ROUTE .STK-MED ONE Stop: 01/23/19 09:50 Cefazolin Sodium/Dextrose 2 gm (/ Premix) 50 mls @ 100 mls/hr IV ONETIME ONE Stop: 01/19/19 15:29 Lactated Ringer's (Ringers, Lactated) 1,000 mls @ 125 mls/hr IV ASDIRECTED CONCEPCION Last Admin: 01/23/19 06:55 Dose: 125 mls/hr Ketamine HCl (Ketalar) Confirm Administered Dose 500 mg .ROUTE .STK-MED ONE Stop: 01/23/19 07:03 Lidocaine (Xylocaine-Mpf 2%) Confirm Administered Dose 5 ml .ROUTE .STK-MED ONE Stop: 01/23/19 06:59 Lidocaine HCl (Xylocaine 2%) Confirm Administered Dose 100 mg .ROUTE .STK-MED ONE Stop: 01/23/19 06:57 Morphine Sulfate (Morphine) Confirm Administered Dose 10 mg .ROUTE .STK-MED ONE Stop: 01/23/19 08:54 Neostigmine Methylsulfate (Neostigmine) Confirm Administered Dose 5 mg .ROUTE .STK-MED ONE Stop: 01/23/19 09:29 Ondansetron HCl (Zofran) Confirm Administered Dose 4 mg .ROUTE .STK-MED ONE Stop: 01/23/19 07:04 Pantoprazole Sodium (Protonix) 40 mg PO ONETIME ONE Stop: 01/23/19 17:16 Last Admin: 01/23/19 17:13 Dose: 40 mg Phenylephrine HCl (Phenylephrine In Ns 100 Mcg/Ml) Confirm Administered Dose 1 mg .ROUTE .STK-MED ONE Stop: 01/23/19 08:19 Propofol (Diprivan 20 Ml) Confirm Administered Dose 400 mg .ROUTE .STK-MED ONE Stop: 01/23/19 06:58 Rocuronium [place] (Zemuron) Confirm Administered Dose 100 mg .ROUTE .STK-MED ONE Stop: 01/23/19 06:57 - Exam Wound/Incisions: Healing Well, Dressing Dry and Intact General: Alert, Oriented, Cooperative Lungs: Clear to Auscultation Cardiovascular: Regular Rate, Irregular Rhythm GI/Abdominal Exam: Soft, Non-Tender, No Distention, No Mass Extremities: Normal Inspection - Problem List & Annotations (1) Symptomatic cholelithiasis SNOMED Code(s): 215076191, 069196537 Code(s): K80.20 - CALCULUS OF GALLBLADDER W/O CHOLECYSTITIS W/O OBSTRUCTION Status: Acute Current Visit: Yes (2) Bigeminal rhythm SNOMED Code(s): 54919606 Code(s): I49.9 - CARDIAC ARRHYTHMIA, UNSPECIFIED Status: Acute Current Visit: Yes (3) Apnea SNOMED Code(s): 7110381, 698814130 Code(s): R06.81 - APNEA, NOT ELSEWHERE CLASSIFIED Status: Acute Current Visit: Yes - Problem List Review Problem List Initiated/Reviewed/Updated: Yes - My Orders Last 24 Hours: Active Orders 24 hr Category Date Time Status Communication Order [RC] PER UNIT ROUTINE Care 01/23/19 16:34 Active Notify Provider Vital Signs [RC] PRN Care 01/23/19 14:48 Active Oxygen Therapy [RC] Q2H Care 01/23/19 14:47 Active RT Incentive Spirometry [RC] Q1HWA Care 01/23/19 14:47 Active Ready for Discharge [RC] PER UNIT ROUTINE Care 01/23/19 09:58 Inactive Ready for Discharge [RC] PER UNIT ROUTINE Care 01/24/19 09:04 Ordered Telemetry Monitoring [Cardiac Monitoring] [RC] . Care 01/23/19 20:36 Active DIRECTED Up ad Joseline [RC] ASDIRECTED Care 01/23/19 14:47 Active Vital Signs [RC] Q4H Care 01/23/19 14:47 Active Respiratory Care Assess and Treatment [CONS] Routine Cons 01/23/19 14:47 Active Regular Diet [DIET] Diet 01/23/19 Dinner Active Acetaminophen/oxyCODONE [Percocet 325-5 MG] Med 01/23/19 14:47 Active 2 tab PO Q4H PRN HYDROmorphone [Dilaudid] Med 01/23/19 14:47 Active 0.5 mg IVPUSH Q1H PRN Lactated Ringers [Ringers, Lactated] 1,000 ml Med 01/23/19 23:15 Active IV ASDIRECTED Pantoprazole [ProTONIX] Med 01/24/19 07:30 Active 40 mg PO ACBREAKFAST diphenhydrAMINE [Benadryl] Med 01/23/19 14:47 Active 25 mg IVPUSH Q4H PRN Medication Orders Diphenhydramine HCl (Benadryl) 25 mg IVPUSH Q4H PRN PRN Reason: Itching Hydromorphone HCl (Dilaudid) 0.5 mg IVPUSH Q1H PRN PRN Reason: Pain (severe 7-10) Lactated Ringer's (Ringers, Lactated) 1,000 mls @ 125 mls/hr IV ASDIRECTED CONCEPCION Last Admin: 01/24/19 00:03 Dose: 125 mls/hr Oxycodone/Acetaminophen (Percocet 325-5 Mg) 2 tab PO Q4H PRN PRN Reason: Pain (moderate 4-6) Last Admin: 01/24/19 00:17 Dose: 1 tab Pantoprazole Sodium (Protonix) 40 mg PO ACBREAKFAST CONCEPCION Last Admin: 01/24/19 06:37 Dose: 40 mg Sodium Chloride (Saline Flush) 10 ml FLUSH ASDIRECTED PRN PRN Reason: Keep Vein Open Sodium Chloride (Saline Flush) 2.5 ml FLUSH ASDIRECTED PRN PRN Reason: Keep Vein Open Sodium Chloride (Normal Saline) 10 ml IV ASDIRECTED PRN PRN Reason: IV Use - Plan Plan (Free Text/Narrative):: Patient's sats were stable overnight. Telemetry was started due to low heart rate however patient has a bigeminal rate with PVCs and rate was in the 60s to 70s. She is doing well this morning. She is tolerating a diet. Pain is controlled on oral medications. She can be discharged home.
== END 2019-01-24 10:00 | disposition home or self-care (01) ==
LOC: MW.SDS 06:26 → MW.MS 14:52 → MW.SDS 01-24 10:00
PROVIDERS: ATTEND Surgery
DX: K80.10 Calculus of gallbladder with chronic cholecystitis without obstruction (principal); K76.0 Fatty (change of) liver, not elsewhere classified; E11.9 Type 2 diabetes mellitus without complications; E78.00 Pure hypercholesterolemia, unspecified; F40.243 Fear of flying; K21.9 Gastro-esophageal reflux disease without esophagitis; N13.30 Unspecified hydronephrosis; E66.01 Morbid (severe) obesity due to excess calories; Z68.41 Body mass index [BMI] 40.0-44.9, adult; Z79.899 Other long term (current) drug therapy
CPT/HCPCS: 47562; 82962; A9270; J2001; J2270; J2370; J2405; J2704; J3010; J3490; J7120; 00790; 88304; J7620-GY